=== PATIENT | female | born 1970 | race African-American/Black ===

== ENCOUNTER 2019-09-01 14:16 | Emergency (ER) | payer MEDICAID ==
[~2019-09-01] VITALS: Ht 162.6 cm; Wt 68.0 kg
[~2019-09-01 14:16] MED LIST: CLINDAMYCIN HC300 MG ORAL; IBUPROFEN800 MG ORAL; NKM
--- NOTE | 2019-09-01 14:35 | NUR ---
ED Nurse Note: PT WALKED IN TO ER TODAY FROM HOME. AOX4. PT C/O LEFT FACIAL SWELLING AND PAIN X YESTERDAY AFTER SUSPECTED INSECT BITE. ON ASSESSMENT, NO OBVIOUS SWELLING NOTED. AIRWAY INTACT. PT STATES PAIN IS A 4/10.
[2019-09-01 14:38] VITALS: BP 124/82
--- NOTE | 2019-09-01 14:38 | NUR ---
ED Nurse Note: PT STATES SHE IS HOMELESS. ADDRESS IS PROVIDED BUT PT STATES IT IS ONLY A MAILING ADDRESS. PT DRESSED IN WEATHER APPROPRIATE CLOTHING. FOOD AND DRINK OFFERED BUT PT REFUSED BECAUSE SHE HAS HER OWN FOOD AND DRINK WITH HER IN ER. PT ASKED WHERE SHE WILL GO AFTER DISCHARGE BUT PT REFUSED TO DISCLOSE INFORMATION. RESOURCES REGARDING FREE HEALTH CLINICS AND SHELTERS OFFERED TO PT BUT PT STATES SHE DOES NOT NEED THEM AT THIS TIME. PT SIGNED UP AND APPROVED FOR EMERGENCY [facility] TODAY.
--- NOTE | 2019-09-01 14:40 | NUR ---
Note uzma in EDM - 09/01/19 at 1500 by [facility] ED Nurse Note: PT ASKED IF SHE IS HOMELESS. PT DENIES HOMELESSNESS AND STATES SHE HAS AN ADDRESS WHERE SHE RESIDES. ADDRESS: [facility] [address], [address].
--- NOTE | 2019-09-01 14:42 | NUR ---
ED Nurse Note: PT SITTING PEACEFULLY IN BED IN NAD. AOX4. PRESCRIPTIONS AND DISCHARGE PAPERWORK EXPLAINED TO PT. PT VERBALIZES UNDERSTANDING AND ALL QUESTIONS ANSWERED. PRESCRIPTIONS AND DISCHARGE PAPERWORK GIVEN TO PT AND ID WRISTBAND REMOVED. PT WALKED OUT OF ER WITH STEADY GAIT AND ALL BELONGINGS.
[2019-09-01 14:43] VITALS: BP 123/80
[2019-09-01] MEDS ORDERED: DIPHENHYDRAMINE25 M1 ORAL (14:43)
[2019-09-01] MEDS ORDERED: CLINDAMYCIN HC300 MG ORAL (14:43)
[2019-09-01] MEDS ORDERED: TYLENOL EXTRA500 MG ORAL (14:43)
--- NOTE | 2019-09-01 15:34 | Emergency Room Report ---
History of Present Illness General Chief Complaint: Pain Source: Patient Present Illness HPI 49-year-old female presents ED for evaluation. Complaining of tooth pain and mouth pain which started yesterday. Notes pain to the upper jaw teeth on the left. States she has had multiple dental caries and previous dental work. Has had previous dental infections. Throbbing, 7 out of 10, nonradiating. Denies fevers or chills. Denies any discharge. Denies any neck stiffness. No other aggravating relieving factors. Denies any other associated symptoms Allergies: Coded Allergies: No Known Allergies (Unverified , 04/19/16) Patient History Past Medical History: none Past Surgical History: none Pertinent Family History: none Social History: Denies: smoking, alcohol use, drug use Last Menstrual Period: 08/2019 Now: No Immunizations: UTD Reviewed Nursing Documentation: PMH: Agreed; PSxH: Agreed Nursing Documentation-PMH Past Medical History: No Stated History Review of Systems All Other Systems: negative except mentioned in HPI Physical Exam Vital Signs Date Time Temp Pulse Resp B/P (MAP) Pulse Ox O2 Delivery O2 Flow Rate FiO2 09/01/19 14:20 98.2 104 16 126/83 (97) 96 Room Air Sp02 EP Interpretation: reviewed, normal General Appearance: no apparent distress, alert, GCS 15, non-toxic Head: normocephalic Eyes: bilateral eye normal inspection, bilateral eye PERRL ENT: normal ENT inspection, TMs + canals normal, uvula midline, other - multiple dental caries. swelling/pain surrounding upper front teeth Neck: full range of motion, supple, no meningismus, supple/symm/no masses Respiratory: normal inspection Cardiovascular #1: normal inspection Gastrointestinal: normal inspection Rectal: deferred Genitourinary: no CVA tenderness Musculoskeletal: normal inspection Neurologic: alert, oriented x3, responsive, motor strength/tone normal, sensory intact, speech normal Psychiatric: normal inspection Skin: no rash Lymphatic: normal inspection Medical Decision Making Diagnostic Impression: Primary Impression: Dental abscess ER Course 49 yo F presents to ED c/o tooth pain Cracked tooth, dental abscess, cavity Patient placed on stretcher. After initial history, physical exam reveals a female in mild distress. Poor oral hygiene with multiple dental caries. There is swelling and erythema surrounding the upper front teeth. This is the site of her pain. No fluctuance or discharge. Will discharge with antibiotics. Recommend close follow-up with dentist. Will provide referrals. Discussed findings with patient. Homeless checklist completed. Diagnosis dental abscess Stable and discharged to home prescription for tylenol and clindamycin. Instructed to see dentist as a walk-in this week. Return to ED if symptoms recur or worse Last Vital Signs Date Time Temp Pulse Resp B/P (MAP) Pulse Ox O2 Delivery O2 Flow Rate FiO2 09/01/19 14:43 98.3 88 18 123/80 99 Room Air Disposition: HOME, SELF-CARE Condition: Stable Scripts Diphenhydramine Hcl* (DIPHENHYDRAMINE HCL*) 25 Mg Capsule 25 MG ORAL Q6H PRN for Itching for 5 Days, #30 CAP 0 Refills Prov: Lenny Linton MD 09/01/19 Clindamycin Hcl (CLINDAMYCIN HCL) 300 Mg Capsule 300 MG ORAL THREE TIMES A DAY, #21 CAP Prov: Lenny Linton MD 09/01/19 Acetaminophen* (TYLENOL EXTRA STRENGTH*) 500 Mg Tablet 500 MG ORAL Q8H PRN for Prn Headache/Temp > 101, #30 TAB 0 Refills Prov: Lenny Linton MD 09/01/19 Referrals: NOT CHOSEN IPA/,REFERRING (PCP) Chicho Patel [facility] INFO: New Patient Screening: Sat- 8am-1pm Sat- 9am -5pm and Sat 2pm-5pm [facility] Pediatrics(age 2-12) - Orthodontic Clinic - Hours: Sat,Sat,, 8:15am and 1pm (new patient screening), Tu. 1pm. Emergency clinic Saturday - Saturday 8:30am and 1pm, Tues. 1pm. *Call to check if clinic is open; No appointment necessary for the first visit ( new patient screening), Arrive 15-30 minutes early as it is first come, first serve. Patient Instructions: Dental Abscess, [id number] Lenny Linton MD Sep 01, 2019 15:33
== END 2019-09-01 14:50 | disposition home or self-care (01) ==
LOC: EMR 14:43
DX: K04.7 Periapical abscess without sinus (principal); Z59.0 Homelessness
CPT/HCPCS: 99282